=== PATIENT | female | born 1990 ===

== ENCOUNTER 2022-07-04 01:22 | Inpatient (IN) | payer OTHER ==
--- NOTE | 2022-07-04 01:53 | HISTORY & PHYSICAL EXAMINATION ---
Admit History - Visit Reason Visit Reason: Contractions - : 4 Parity: 2 : 1 Care: positive: None Risk/History: positive: No care Complications This : positive: Maternal drug use Smoking Status: Current every day smoker - Mother's Labs Mother's Blood Type: positive: Unknown Mother's RH: positive: Unknown Rubella Status: positive: Unknown - Other Maternal History Other Maternal History: HPI: Patient is a 32-year-old -0-1-2 at approximately 36 weeks gestation with no care. She had an ultrasound several months ago with an expected SADA of July 25, 2022. She has good movement. She has been leaking a small amount of clear fluid repeatedly since yesterday morning. She does have a headache and has been taking ibuprofen. She has been taking amoxicillin for a tooth infection she sees [facility] dental.. No RUQP. No vaginal bleeding. Denies nausea and vomiting. Denies urinary urgency or dysuria. All other symptoms reviewed and were negative except per HPI. Course No care PMH Sinus tachycardia History of IV drug use PSH Denies previous surgeries OB History -0-1-2 G1: 41 weeks, male, 7 pounds 10 ounces G2: 40 weeks, female, 7 pounds 8 ounces G3: Miscarriage SH Homeless. She did buy a trailer, but does not work out. Currently living in a house for others use miscellaneous drugs, but denies herself she does say she has a history of IV drug use, but says she does not want talk about her history. She says its been approximately 3 years since her last use. No alcohol Approximately 1/2 pack/day tobacco Family History Denies pertinent family history Allergies No known drug allergies Medications Amoxicillin Ibuprofen Physical exam: Temp Pulse Resp BP Pulse Ox O2 Flow Rate 98.1 F 116 H 18 133/87 H 07/04/22 02:15 07/04/22 02:15 07/04/22 02:15 07/04/22 02:15 General: Alert, oriented, no acute distress, disheveled appearing, soiled clothing Head: Normal cephalic atraumatic Eyes: PERRLA, extraocular motions intact. Respiratory: Normal rate of respiration. No accessory muscle use, normal res piratory effort. Cardiovascular: Regular rate and rhythm Abdomen: Gravid, nontender, nondistended Extremities: Normal range of motion Neuro: Oriented x3. Normal movements Psych: Appropriate mood and affect. Normal judgment and insight SVE: /0 FHT: 120 bpm baseline, moderate variability, accelerations present, occasional variable deceleration. [place]: Irregular on the monitor, but every several minutes by palpation Bedside ultrasound: Approximately 36 weeks. Very difficult to examine head due to position of the pelvis. Abdomen and femur measuring 36 weeks. Rom plus: Negative Plan 32-year-old -0-1-2 at approximately 36 weeks gestation admitted for term labor 1. labor -Likely 36 weeks gestation, actively red every several minutes and making cervical change, 4cm on arrival and progressed to 7cm. 2. 36 weeks gestation 3. Category 2 tracing -Intermittent decelerations, difficult to time with contractions. Often times is tracing maternal heart rate 4. No care -Walk-in labs ordered. 5. History of IV drug use -Consents to UDS verbally, and signed form in chart. 6. Tachycardia: -Concern for recent IV drug use Meds/Allgy - Allergies Allergies/Adverse Reactions: Allergies Allergy/AdvReac Type Severity Reaction Status Date / Time No Known Drug Allergies Allergy Verified 07/04/22 01:42 Plan for Labor - Plan For Labor I expect patient to be DC'd or transferred within 96 hours.: Yes
[2022-07-04 02:20] LABS: RUPTURE OF MEMBRANES PLUS NEGATIVE (NEGATIVE)
[2022-07-04 02:29] LABS: BASOPHILS # (AUTO) 0.1 10^3/uL (0.0-0.1); BASOPHILS % (AUTO) 0.4 %; EOSINOPHILS # (AUTO) 0.1 10^3/uL (0.0-0.7); EOSINOPHILS % (AUTO) 0.3 %; HCT - HEMATOCRIT 38.5 % (37.0-47.0); HGB - HEMOGLOBIN 12.3 g/dL (12.0-16.0); LYMPHOCYTES # (AUTO) 1.7 10^3/uL (1.5-3.5); LYMPHOCYTES % (AUTO) 9.6 %; MEAN CORPUSCULAR HEMOGLOBIN 27.6 pg (27.0-31.0); MEAN CORPUSCULAR HGB CONC 31.9 g/dL (32.0-36.0); MEAN CORPUSCULAR VOLUME 86.5 fL (81.0-99.0); MEAN PLATELET VOLUME 10.9 fL (7.9-10.8); MONOCYTES # (AUTO) 0.7 10^3/uL (0.0-1.0); MONOCYTES % (AUTO) 4.2 %; NEUTROPHILS # (AUTO) 14.7 10^3/uL (1.5-6.6); PLT - PLATELET COUNT 351 10^3/uL (130-450); RED BLOOD COUNT 4.45 10^6/uL (4.20-5.40); RED CELL DISTRIBUTION WIDTH 15.8 % (12.0-15.0); WHITE BLOOD COUNT 17.2 x10^3/uL (4.8-10.8)
[2022-07-04 02:38] LABS: ALBUMIN 2.8 g/dL (3.2-5.5); ALBUMIN/GLOBULIN RATIO 0.6 (1.0-2.2); BILIRUBIN,TOTAL 0.2 mg/dL (0.2-1.0); CALCIUM 9.9 mg/dL (8.5-10.3); CREATININE 0.7 mg/dL (0.4-1.0); POTASSIUM 4.1 mmol/L (3.5-5.0); TOTAL PROTEIN 7.8 g/dL (6.7-8.2)
[2022-07-04 02:53] VITALS: BP 133/87
[2022-07-04] MEDS ORDERED: hydrALAZINE INJ 20 MG/ML VIAL IVP PRN ×2 (03:08)
[2022-07-04] MEDS ORDERED: miSOPROStoL 200 MCG TABLET BC PRN (03:08)
[2022-07-04] MEDS ORDERED: CARBOPROST TROMETHAMINE 250 MCG/ML AMP IM PRN (03:08)
[2022-07-04] MEDS ORDERED: LABETALOL 20 MG/4 ML SYRINGE IVP PRN ×3 (03:08)
[2022-07-04] MEDS ORDERED: TERBUTALINE 1 MG/ML VIAL SUBQ PRN (03:08)
[2022-07-04] MEDS ORDERED: METHYLERGONOVINE 0.2 MG/ML VIAL IM PRN (03:08)
[2022-07-04] MEDS ORDERED: TRANEXAMIC ACID IN NACL 1,000 MG/100 ML BAG IV PRN (03:08)
[2022-07-04] MEDS ORDERED: SODIUM CHLORIDE FLUSH 0.9% 10 ML SYRINGE IVP PRN (03:08)
[2022-07-04] MEDS ORDERED: lidocaine 1% 20 ML MDV ID PRN (03:08)
[2022-07-04] MEDS ORDERED: OXYTOCIN/SODIUM CHLORIDE 500 ML IV PRN (03:08)
[2022-07-04] MEDS ORDERED: NIFEdipine 10 MG CAPSULE PO PRN (03:08)
[2022-07-04] MEDS ORDERED: OXYTOCIN 10 UNIT/ML VIAL IM PRN (03:08)
[2022-07-04] MEDS ORDERED: miSOPROStoL 200 MCG TABLET PR PRN (03:08)
[2022-07-04] MEDS ORDERED: fentaNYL 100 MCG/2 ML VIAL IVP PRN (03:08)
[2022-07-04] MEDS ORDERED: SODIUM CHLORIDE FLUSH 0.9% 10 ML SYRINGE IVP SCH (04:00)
[2022-07-04] MEDS ORDERED: LACTATED RINGERS 1,000 ML IV SCH (04:00)
[2022-07-04 04:27] LABS: BACTERIAL VAGINOSIS DNA NEGATIVE (NEGATIVE); CANDIDA GLABRATA DNA NEGATIVE (NEGATIVE); CANDIDA GROUP DNA NEGATIVE (NEGATIVE); CANDIDA KRUSEI DNA NEGATIVE (NEGATIVE); TRICHOMONAS VAGINALIS DNA NEGATIVE (NEGATIVE)
[2022-07-04 06:16] LABS: CHLAMYDIA TRACHOMATIS DNA NEGATIVE (NEGATIVE); NEISSERIA GONORRHOEAE DNA NEGATIVE (NEGATIVE)
[2022-07-04] MEDS ORDERED: ACETAMINOPHEN 500 MG TABLET PO ONE (07:00)
[2022-07-04] MEDS ORDERED: IBUPROFEN 600 MG TABLET PO ONE (07:00)
== END 2022-07-04 09:35 | disposition home or self-care (01) | DRG 806 ==
LOC: UNDOADMIN 01:22 → FBP 01:22 → WFO 01:22 → FBP 03:08 → UNDODISIN 03:10 → EDSTATUS 07:14
PROVIDERS: ADMIT Obstetrics & Gynecology; ATTEND Obstetrics & Gynecology
PROC: 10E0XZZ Delivery of Products of Conception, External Approach (ICD-10-PCS; principal; 2022-07-04)
DX: O60.14X0 Preterm labor third trimester with preterm delivery third trimester, not applicable or unspecified (principal); O99.12 Other diseases of the blood and blood-forming organs and certain disorders involving the immune mechanism complicating childbirth; Z37.0 Single live birth; Z3A.36 36 weeks gestation of pregnancy; O75.89 Other specified complications of labor and delivery; R00.0 Tachycardia, unspecified; Z87.898 Personal history of other specified conditions; D72.829 Elevated white blood cell count, unspecified; O99.62 Diseases of the digestive system complicating childbirth; K92.89 Other specified diseases of the digestive system; K04.7 Periapical abscess without sinus; O42.113 Preterm premature rupture of membranes, onset of labor more than 24 hours following rupture, third trimester; O99.334 Smoking (tobacco) complicating childbirth; F17.200 Nicotine dependence, unspecified, uncomplicated; R51.9 Headache, unspecified; Z59.01 Sheltered homelessness; O76 Abnormality in fetal heart rate and rhythm complicating labor and delivery; O69.81X0 Labor and delivery complicated by cord around neck, without compression, not applicable or unspecified
CPT/HCPCS: 80053; 81514; 84112; 85025; 86850; 86900; 86901; 87491; 87591; 87797; 99215; A9270; J7120; 59025; 87661

== ENCOUNTER → 2022-07-04 | Outpatient (CLI) | payer MEDICAID | END | disposition critical access hospital (66) | LOC: EMS 00:45 | DX: O26.893 Other specified pregnancy related conditions, third trimester (principal); Z59.01 Sheltered homelessness | CPT/HCPCS: A0425; A0429; A0999 ==